=== PATIENT | male | born 1985 | race Caucasian/White ===

== ENCOUNTER 2023-09-27 06:14 | Day surgery (SDC) | payer OTHER ==
[2023-09-27 06:37] LABS: BASOPHILS # (AUTO) 0.1 10^3/uL (0.0-0.1); BASOPHILS % (AUTO) 0.3 %; EOSINOPHILS # (AUTO) 0.2 10^3/uL (0.0-0.7); EOSINOPHILS % (AUTO) 1.2 %; HCT - HEMATOCRIT 49.8 % (42.0-52.0); HGB - HEMOGLOBIN 16.4 g/dL (14.0-18.0); LYMPHOCYTES # (AUTO) 1.9 10^3/uL (1.5-3.5); LYMPHOCYTES % (AUTO) 9.6 %; MEAN CORPUSCULAR HEMOGLOBIN 28.4 pg (27.0-31.0); MEAN CORPUSCULAR HGB CONC 32.9 g/dL (32.0-36.0); MEAN CORPUSCULAR VOLUME 86.3 fL (80.0-94.0); MEAN PLATELET VOLUME 9.4 fL (7.4-11.4); MONOCYTES # (AUTO) 1.9 10^3/uL (0.0-1.0); MONOCYTES % (AUTO) 9.4 %; NEUTROPHILS # (AUTO) 15.8 10^3/uL (1.5-6.6); NEUTROPHILS % (AUTO) 79.1 %; PLT - PLATELET COUNT 288 10^3/uL (130-450); RED BLOOD COUNT 5.77 10^6/uL (4.70-6.10); WHITE BLOOD COUNT 19.9 x10^3/uL (4.8-10.8)
[2023-09-27 06:43] LABS: BILIRUBIN,URINE NEGATIVE (NEGATIVE); CLARITY,URINE CLEAR (CLEAR); GLUCOSE, URINE (UA) 250 mg/dL (NEGATIVE); KETONES,URINE (UA) TRACE mg/dL (NEGATIVE); LEUKOCYTE ESTERASE, URINE NEGATIVE (NEGATIVE); NITRITE,URINE NEGATIVE (NEGATIVE); OCCULT BLOOD,URINE SMALL (NEGATIVE); PROTEIN,URINE TRACE mg/dL (NEGATIVE); UROBILINOGEN,URINE 0.2 (NORMAL) E.U./dL (NORMAL)
[2023-09-27] MEDS: SODIUM CHLORIDE 0.9% 1,000 ML IV STA (06:45)
[2023-09-27] MEDS: KETOROLAC 30 MG/ML VIAL IVP STA (06:45)
[2023-09-27 06:55] LABS: ALBUMIN 4.7 g/dL (3.2-5.5); ALBUMIN/GLOBULIN RATIO 1.8 (1.0-2.2); BILIRUBIN,TOTAL 1.1 mg/dL (0.2-1.0); CALCIUM 10.3 mg/dL (8.5-10.3); CREATININE 1.2 mg/dL (0.6-1.3); POTASSIUM 3.5 mmol/L (3.5-4.5); TOTAL PROTEIN 7.3 g/dL (6.4-8.9)
--- NOTE | 2023-09-27 06:55 | ED Physician Documentation ---
PD HPI ABD PAIN - Stated complaint Stated Complaint: ,NAUSEA,ABD PX - Chief complaint Chief Complaint: Abd Pain - History obtained from History obtained from: Patient, Family - History of Present Illness Timing - onset: Enter time (0800), Yesterday Timing - duration: Days (1) Timing - details: Gradual onset, Still present Quality: Sharp, Pain Location: Epigastric Radiation: Improved by: Laying still Worsened by: Moving, Position, Palpation Associated symptoms: Nausea, Vomiting Similar symptoms before: Diagnosis (kidney stone) Recently seen: Not recently seen - Additional information Additional information: Previously well 38-year-old Shakeel Simmons developed sudden onset of abdominal pain yesterday in the center of his abdomen. He was clutching his abdomen most of the day. His pain is now moved to his suprapubic area and right lower quadrant. The patient was able to eat last night he attempted to eat something today and vomited. Review of Systems Constitutional: denies: Fever Nose: denies: Congestion Throat: denies: Sore throat Cardiac: denies: Chest pain / pressure Respiratory: denies: Dyspnea, Cough GI: reports: Abdominal Pain, Nausea, Vomiting (once last night) : reports: Frequency. denies: Dysuria Skin: denies: Rash Musculoskeletal: denies: Neck pain, Back pain, Extremity pain Neurologic: denies: Generalized weakness, Focal weakness, Numbness PD PAST MEDICAL HISTORY - Past Medical History Past Medical History: Yes : Kidney stones - Past Surgical History Past Surgical History: Yes HEENT: Other - Present Medications Home Medications: Ambulatory Orders Medication Instructions Recorded Confirmed Diclofenac Sodium 1% Gel [Voltaren 1 applic TOP BID 09/27/23 09/27/23 Gel] - Allergies Allergies/Adverse Reactions: Allergies Allergy/AdvReac Type Severity Reaction Status Date / Time No Known Drug Allergies Allergy Verified 09/27/23 06:27 - Social History Does the pt smoke?: No Smoking Status: Never smoker Does the pt drink ETOH?: No Does the pt have substance abuse?: No - Immunizations Immunizations are current?: Yes - POLST Patient has POLST: No PD ED PE NORMAL - Vitals Vital signs reviewed: Yes (tachy and hypertensive ) - General General: Alert and oriented X 3, Well developed/nourished, Other (Patient appears anxious and and in pain.) - HEENT HEENT: Atraumatic, PERRL, EOMI - Neck Neck: Supple, no meningeal sign, No bony TTP - Cardiac Cardiac: No murmur, Other (Tachycardia to 110) - Respiratory Respiratory: No respiratory distress, Clear bilaterally - Abdomen Abdomen: Soft, Non distended, No organomegaly, Other (Suprapubic tenderness and right lower quadrant tenderness. There is tenderness referred to the suprapubic area from palpation of the right lower quadrant and not from the left.) - Back Back: No CVA TTP, No spinal TTP - Derm Derm: Normal color, Warm and dry, No rash - Extremities Extremities: No deformity, No edema - Neuro Neuro: Alert and oriented X 3, behavior analyst 2-12 intact, No motor deficit, No sensory deficit, Normal speech Eye Opening: Spontaneous Motor: Obeys Commands Verbal: Oriented GCS Score: 15 - Psych Psych: Normal mood, Normal affect Results - Vitals Vitals: Vital Signs - 24 hr 09/27/23 06:21 Temperature 37.2 C Heart Rate 106 H Respiratory 20 Rate Blood Pressure 131/89 H O2 Saturation 97 Oxygen O2 Source Room air - Labs Labs: Laboratory Tests 09/27/23 09/27/23 09/27/23 06:30 06:30 06:30 WBC 19.9 H RBC 5.77 Hgb 16.4 Hct 49.8 MCV 86.3 MCH 28.4 MCHC 32.9 RDW 13.0 Plt Count 288 MPV 9.4 Neut # (Auto) 15.8 H Lymph # (Auto) 1.9 [place] # (Auto) 1.9 H Eos # (Auto) 0.2 Baso # (Auto) 0.1 Absolute Nucleated RBC 0.00 Band Neuts % (Manual) Not Reportable Abnorm Lymph % (Manual) Not Reportable Nucleated RBC % 0.0 Neutrophils # (Manual) Not Reportable Lymphocytes # (Manual) Not Reportable Monocytes # (Manual) Not Reportable Eosinophils # (Manual) Not Reportable Basophils # (Manual) Not Reportable Differential Comment MANUAL=AUTO DIFF Platelet Estimate NORMAL (130-450,000) Platelet Morphology NORMAL APPEARANCE Sodium 140 Potassium 3.5 Chloride 102 Carbon Dioxide 31 Anion Gap 7.0 BUN 12 Creatinine 1.2 Estimated GFR (MDRD) 67 L Glucose 115 H Calcium 10.3 Total Bilirubin 1.1 H AST 12 ALT 22 Alkaline Phosphatase 74 Total Protein 7.3 Albumin 4.7 Globulin 2.6 Albumin/Globulin Ratio 1.8 Lipase 20 Urine Color YELLOW Urine Clarity CLEAR Urine pH 6.0 Ur Specific [place] >=1.030 H Urine Protein TRACE Urine Glucose (UA) 250 H Urine Ketones TRACE Urine Occult Blood SMALL H Urine Nitrite NEGATIVE Urine Bilirubin NEGATIVE Urine Urobilinogen 0.2 (NORMAL) Ur Leukocyte Esterase NEGATIVE Ur Microscopic Review INDICATED Urine Culture Comments Not Reportable - Rads (name of study) CT abdomen pelvis without Relevant Findings:: Prelim report reviewed (Impression: 1. Acute appendicitis. No free air or abscess demonstrated. Bilateral nephrolithiasis. No evidence of obstructive uropathy.), EMP independent interpretation of test Procedures - Bedside sono Bedside sono by EMP: With use of POCUS the kidneys are imaged without evidence of hydronephrosis. They are sonographically nontender. Right lower quadrant is imaged with a tubular structure present and sonographic tenderness that extends to the bladder which is partially filled. - IVC sono (time) 0630 Bedside IVC sono: IVC measures (cm) (0.73), Dehydration (est 2+ liter deficit) PD Medical Decision Making - ED course Complexity details: reviewed results, re-evaluated patient, considered differential, d/w patient, d/w family Reviewed Lab Results: We reviewed a complete blood count showing a white blood cell count elevated at 19.9 normal hemoglobin hematocrit and platelets chemistries were with normal electrolytes normal kidney and liver function urinalysis shows concentrated urine with some trace glucose and trace occult blood. I interpreted these laboratory studies to indicate likely infectious process associated with this presentation and this is confirmed with the presence of appendicitis on the CT scan of the abdomen and pelvis. ED course: 38-year-old Shakeel Simmons came to the emergency department with abdominal pain that radiated down to his bladder over a period of the day and on examination he has suprapubic pain more to the right than the left. CT scan of the abdomen pelvis shows a dilated elongated appendix consistent with acute appendicitis without rupture or free air surgeon was contacted and the case and will come to the emergency department for evaluation. Dr. Romero placed orders for Unasyn and contacted the surgeon. The patient had improvement in his pain with use of 30 mg of Toradol. I did interrogate the IVC with POCUS found a 0.73 cm vessel consistent with a 2 to 3 L deficit. He was administered a liter of saline here in the emergency department. Departure - Departure Disposition: ED Transfer to [facility] Clinical Impression: Appendicitis Qualifiers: Appendicitis type: acute appendicitis Acute appendicitis type: with localized peritonitis Appendicitis gangrene presence: without gangrene Appendicitis perforation presence: without perforation Appendicitis abscess presence: without abscess Qualified Code(s): K35.30 - Acute appendicitis with localized peritonitis, without perforation or gangrene Forms: PCP List
[2023-09-27 07:05] LABS: DIFFERENTIAL COMMENT MANUAL=AUTO DIFF; PLATELET ESTIMATE, MANUAL NORMAL (130-450,000) (NORMAL); PLATELET MORPHOLOGY NORMAL APPEARANCE (NORMAL)
[2023-09-27] MEDS: PIPERACILLIN/TAZOBACTAM 3.375 GM in SODIUM CHLORIDE 0.9% MINIBAG 100 ML IV STA (07:50)
[2023-09-27] MEDS: LACTATED RINGERS 1,000 ML IV STA (07:51)
[2023-09-27 08:01] LABS: BACTERIA,URINE Few /HPF (None Seen); RBC,URINE 0-5 /HPF (0-5); SQUAMOUS EPITHELIAL CELL,UR FEW Squamous (<= Few); WBC,URINE 0-3 /HPF (0-3)
--- NOTE | 2023-09-27 08:48 | CT Report ---
PROCEDURE: Abdomen/Pelvis WO INDICATIONS: suprapubic and RLQ pain TECHNIQUE: A CT scan of the abdomen and pelvis was performed without the use of intravenous contrast. Images we re recorded and evaluated at appropriate window settings. Reformats: coronal and sagittal. For radiat ion dose reduction, the following was used: automated exposure control, adjustment of mA and/or kV ac cording to patient size. COMPARISON: None. FINDINGS: Image quality: Diagnostic. Lower chest: Unremarkable. Liver: No contour-deforming mass. Gallbladder: No radiopaque stones or wall thickening. Biliary tree: No intrahepatic or extrahepatic dilation, accounting for age. Spleen: No splenomegaly. Pancreas: No pancreatic ductal dilation. Adrenals: No adrenal nodule. Kidneys and ureters: No hydronephrosis. Bilateral nonobstructing renal calculi are seen measures up t o 2 mm in size in midpole of right kidney and 3 mm in size in lower pole of left kidney. No contour-d eforming mass. Stomach, bowel and peritoneum: There is no bowel obstruction. Enlarged appendix is seen with appendic eal wall thickening and periappendiceal fat stranding. 6 mm appendicolith is also noted series 2 imag e 131. There is no abscess collection. No other area of abnormal bowel wall thickening. No free fluid of free air. Lymph nodes: No central or retroperitoneal adenopathy. Vessels: No infrarenal aortic aneurysm. Reproductive organs: Unremarkable. Bladder: Bladder wall thickness is normal, accounting for underdistention. No calcified bladder stone s. Pelvic lymph nodes: No adenopathy by size criteria. Bones: No aggressive osseous abnormality. Other: No significant ventral or inguinal hernia. IMPRESSION: 1. Acute appendicitis containing 6 mm appendicolith. No perforation. No abscess collection. 2. No bowel obstruction. No other area of abnormal bowel wall thickening. No free fluid of free air. 3. No obstructing renal stones or hydronephrosis. Bilateral nonobstructing renal calculi. No discrepancies from preliminary reading. Reviewed by: Kanu Carty MD on 09/27/2023 8:47 AM PDT Approved by: Kanu Carty MD on 09/27/2023 8:47 AM PDT Station ID: [id number]
[2023-09-27] MEDS ORDERED: LIDOCAINE 1%-EPI 1:100000 20 ML MDV ONE ×2 (09:24→09:25)
[2023-09-27] MEDS ORDERED: BUPIVACAINE 0.25% PF 30 ML VIAL ONE (09:25)
[2023-09-27] MEDS ORDERED: SCOPOLAMINE PATCH TOP ONE (09:30)
--- NOTE | 2023-09-27 09:40 | HISTORY & PHYSICAL EXAMINATION ---
HPI - Admitted From Admitted from: ED - History Obtained From History obtained from: Patient Exam limitations: No limitations - History of Present Illness HPI Comment/Other: 38yoM with 24hrs of migratory RLQ pain. Initially felt to be gas pain, however progressed, was associated with nausea, no emesis. X1 diarrhea this AM. He last attempted to eat cereal 4 hours ago, however had no appetite. Denies prior similar episodes, denies fever or chills. Denies dysuria. PMH/PSH - Past Medical History Cardiovascular: positive: None Respiratory: positive: None Neuro: positive: None Endocrine/Autoimmune: positive: None GI: positive: None : positive: Kidney stones Psych: positive: None Musculoskeletal: positive: None Derm: positive: None MRSA Hx?: No - Past Surgical History Ortho: positive: Other (RIGHT shoulder surgery ) HEENT: positive: Other Other past surgical history: Percutaneous nephrolithotripsy Social & Family Hx - Living Situation Living Arrangement: At home Living Situation: With spouse/s.o. - Social History Does the pt smoke?: No Smoking Status: Never smoker Does the pt drink ETOH?: No Does the pt have substance abuse?: No - POLST Patient has POLST: No Meds/Allgy - Home Medications Home Medications: Ambulatory Orders Medication Instructions Recorded Confirmed Diclofenac Sodium 1% Gel [Voltaren 1 applic TOP BID 09/27/23 09/27/23 Gel] - Allergies Allergies/Adverse Reactions: Allergies Allergy/AdvReac Type Severity Reaction Status Date / Time No Known Drug Allergies Allergy Verified 09/27/23 06:27 Review of Systems - Gastrointestinal Gastrointestinal: reports: Abdominal pain, Diarrhea, Nausea. denies: Bloody stools, Vomiting - Genitourinary Genitourinary: denies: Dysuria Exam - Vital Signs Reviewed Vital Signs: Yes Vital Signs: Vital Signs x48h Temp Pulse Resp BP Pulse Ox 09/27/23 08:21 36.9 C 88 18 119/79 100 09/27/23 06:21 37.2 C 106 H 20 131/89 H 97 - Physical Exam General Appearance: positive: No acute distress, Alert Eyes Bilateral: positive: Normal inspection, PERRL ENT: positive: ENT inspection nml, Pharynx nml, No signs of dehydration Neck: positive: Nml inspection, Thyroid nml, No JVD, Trachea midline Respiratory: positive: Chest non-tender, No respiratory distress, Breath sounds nml Cardiovascular: positive: Regular rate & rhythm, No murmur, No gallop Peripheral Pulses: positive: 2+ Abdomen: positive: No distention, Tenderness (RLQ, negative rosvings). negative: Guarding, Rebound Back: positive: Nml inspection Skin: positive: Color nml, No rash, Warm, Dry Extremities: positive: Non-tender, Full ROM, Nml appearance Neurologic/Psychiatric: positive: Oriented x3, Mood/affect nml Results - Lab Results Lab results reviewed: Yes Fish Bones: 09/27/23 06:30 09/27/23 06:30 Other Lab Results: Lab Results x24hrs 09/27/23 09/27/23 09/27/23 Range/Units 06:30 06:30 06:30 WBC 19.9 H (4.8-10.8) x10^3/uL RBC 5.77 (4.70-6.10) 10^6/uL Hgb 16.4 (14.0-18.0) g/dL Hct 49.8 (42.0-52.0) % MCV 86.3 (80.0-94.0) fL MCH 28.4 (27.0-31.0) pg MCHC 32.9 (32.0-36.0) g/dL RDW 13.0 (12.0-15.0) % Plt Count 288 (130-450) 10^3/uL MPV 9.4 (7.4-11.4) fL Neut # (Auto) 15.8 H (1.5-6.6) 10^3/uL Lymph # (Auto) 1.9 (1.5-3.5) 10^3/uL [place] # (Auto) 1.9 H (0.0-1.0) 10^3/uL Eos # (Auto) 0.2 (0.0-0.7) 10^3/uL Baso # (Auto) 0.1 (0.0-0.1) 10^3/uL Absolute Nucleated RBC 0.00 x10^3/uL Band Neuts % (Manual) Not Reportable Abnorm Lymph % (Manual) Not Reportable Nucleated RBC % 0.0 /100WBC Neutrophils # (Manual) Not Reportable Lymphocytes # (Manual) Not Reportable Monocytes # (Manual) Not Reportable Eosinophils # (Manual) Not Reportable Basophils # (Manual) Not Reportable Differential Comment MANUAL=AUTO DIFF Platelet Estimate NORMAL (130-450,000) (NORMAL) Platelet Morphology NORMAL APPEARANCE (NORMAL) Sodium 140 (135-145) mmol/L Potassium 3.5 (3.5-4.5) mmol/L Chloride 102 (101-111) mmol/L Carbon Dioxide 31 (21-32) mmol/L Anion Gap 7.0 (6-13) BUN 12 (6-20) mg/dL Creatinine 1.2 (0.6-1.3) mg/dL Estimated GFR (MDRD) 67 L (>89) Glucose 115 H (74-104) mg/dL Calcium 10.3 (8.5-10.3) mg/dL Total Bilirubin 1.1 H (0.2-1.0) mg/dL AST 12 (10-42) IU/L ALT 22 (10-60) IU/L Alkaline Phosphatase 74 (42-121) IU/L Total Protein 7.3 (6.4-8.9) g/dL Albumin 4.7 (3.2-5.5) g/dL Globulin 2.6 (2.1-4.2) g/dL Albumin/Globulin Ratio 1.8 (1.0-2.2) Lipase 20 (11-82) U/L Urine Color YELLOW Urine Clarity CLEAR (CLEAR) Urine pH 6.0 (5.0-7.5) PH Ur Specific [place] >=1.030 H (1.002-1.030) Urine Protein TRACE (NEGATIVE) mg/dL Urine Glucose (UA) 250 H (NEGATIVE) mg/dL Urine Ketones TRACE (NEGATIVE) mg/dL Urine Occult Blood SMALL H (NEGATIVE) Urine Nitrite NEGATIVE (NEGATIVE) Urine Bilirubin NEGATIVE (NEGATIVE) Urine Urobilinogen 0.2 (NORMAL) (NORMAL) E.U./dL Ur Leukocyte Esterase NEGATIVE (NEGATIVE) Urine RBC 0-5 (0-5) /HPF Urine WBC 0-3 (0-3) /HPF Ur Squamous Epith Cells FEW Squamous (<= Few) Urine Bacteria Few (None Seen) /HPF Ur Microscopic Review INDICATED Urine Culture Comments NOT INDICATED - Diagnostic Imaging Results Diagnostic Imaging Results: positive: Read contemporaneously Diagnostic Imaging Results Comments: CT abd/pel without contrast c/w dilated, inflamed appendix with appendicolith, acute appendicitis without evidence of perforation. Sepsis Event Note (H) - Evaluation Current Stage of Sepsis: Sepsis Possible source of Sepsis: positive: GI tract/intra-abdominal Confirmed Source and Organism (if known) of Sepsis: appendix - Sepsis Criteria Sepsis Criteria: Recorded Heart Rate greater than 90 bpm, WBC count greater than 12,000 or less than 4000 Impression/Plan - Problem List Problem List: 38yoM, relatively healthy with history of nephrolithiasis, presents to the ED With H&P c/w acute appendicitis. 24hrs of pain, RLQ ttp, HR to 106 and WBC to 19, CT demonstrates dilated inflamed appendix with appendicolith. Discussed with patient and his the diagnosis and treatment options to include antibiotics alone vs surgery. Risk of failure and recurrence with antibiotics alone discussed. Risks of surgery to include pain, bleeding, infection/abscess, open surgery, bowel resection, need for further procedures discussed. All questions answered, and the patient agrees to proceed with surgery. - 1L crystalloid and Zosyn given in ED - to OR for laparoscopic appendectomy - anticipate DC home within 24hrs Sarah Willingham DO, FACS General Surgeon
[2023-09-27] MEDS ORDERED: PROPOFOL 200 MG/20 ML VIAL IVP ONE ×3 (09:42→10:45)
[2023-09-27] MEDS ORDERED: DEXAMETHASONE 4 MG/ML VIAL ONE (09:42)
[2023-09-27] MEDS ORDERED: ONDANSETRON 4 MG/2 ML VIAL ONE (09:42)
[2023-09-27] MEDS ORDERED: ROCURONIUM 50 MG/5 ML VIAL ONE (09:42)
[2023-09-27] MEDS ORDERED: MIDAZOLAM 2 MG/2 ML VIAL ONE (09:46)
[2023-09-27] MEDS ORDERED: fentaNYL 100 MCG/2 ML VIAL ONE (09:46)
[2023-09-27] MEDS ORDERED: PROPOFOL 500 MG/50 ML 500 MG/50 ML VIAL ONE ×2 (09:52→10:29)
[2023-09-27] MEDS ORDERED: KETAMINE 200 MG/20 ML VIAL ONE (09:55)
[2023-09-27] MEDS ORDERED: ATROPINE ABBOJECT 1 MG/10 ML SYRINGE IVP PRN (09:57)
[2023-09-27] MEDS ORDERED: ONDANSETRON 4 MG/2 ML VIAL IVP PRN ×2 (09:57→11:22)
[2023-09-27] MEDS ORDERED: fentaNYL 100 MCG/2 ML VIAL IVP PRN (09:57)
[2023-09-27] MEDS ORDERED: METOCLOPRAMIDE 10 MG/2 ML VIAL IVP PRN (09:57)
[2023-09-27] MEDS ORDERED: MORPHINE 2 MG/ML CARPUJECT IVP PRN (09:57)
[2023-09-27] MEDS ORDERED: HYDROmorphone 0.5 MG/0.5 ML SYRINGE IVP PRN (09:57)
[2023-09-27] MEDS ORDERED: ePHEDrine 50 MG/ML VIAL IVP PRN (09:57)
[2023-09-27] MEDS ORDERED: NALOXONE 0.4 MG/ML VIAL IVP PRN (09:57)
--- NOTE | 2023-09-27 09:57 | ANESTHESIA ---
Pre-Anesthesia VS, & Labs - Diagnosis appendicitis - Procedure laparascopic appendectomy Vital Signs: Temp Pulse Resp BP Pulse Ox O2 Flow Rate 36.9 C 88 18 119/79 100 09/27/23 08:21 09/27/23 08:21 09/27/23 08:21 09/27/23 08:21 09/27/23 08:21 Height: 6 ft 3 in Weight (kg): 92.079 kg Body Mass Index: 25.3 BMI Classification: Overweight - NPO Last Fluid Intake: 514 Last Food Intake: 514 - Lab Results Current Lab Results: Laboratory Tests 09/27/23 06:30: Sodium 140, Potassium 3.5, Chloride 102, Carbon Dioxide 31, Anion Gap 7.0, BUN 12, Creatinine 1.2, Estimated GFR (MDRD) 67 L, Glucose 115 H, Calcium 10.3, Total Bilirubin 1.1 H, AST 12, ALT 22, Alkaline Phosphatase 74, Total Protein 7.3, Albumin 4.7, Globulin 2.6, Albumin/Globulin Ratio 1.8, Lipase 20 09/27/23 06:30: WBC 19.9 H, RBC 5.77, Hgb 16.4, Hct 49.8, MCV 86.3, MCH 28.4, MCHC 32.9, RDW 13.0, Plt Count 288, MPV 9.4, Neut # (Auto) 15.8 H, Lymph # (Auto) 1.9, [place] # (Auto) 1.9 H, Eos # (Auto) 0.2, Baso # (Auto) 0.1, Absolute Nucleated RBC 0.00, Band Neuts % (Manual) Not Reportable, Abnorm Lymph % (Manual) Not Reportable, Nucleated RBC % 0.0, Neutrophils # (Manual) Not R eportable, Lymphocytes # (Manual) Not Reportable, Monocytes # (Manual) Not Reportable, Eosinophils # (Manual) Not Reportable, Basophils # (Manual) Not Reportable, Differential Comment MANUAL=AUTO DIFF, Platelet Estimate NORMAL (130-450,000), Platelet Morphology NORMAL APPEARANCE Lab results reviewed: Yes Fish Bones: 09/27/23 06:30 09/27/23 06:30 Home Medications and Allergies Home Medications: Ambulatory Orders Diclofenac Sodium 1% Gel [Voltaren Gel] 1 applic TOP BID 09/27/23 Diclofenac Sodium 1% Gel [Voltaren Gel] 1 applic TOP BID 09/27/23 Allergies/Adverse Reactions: Allergies Allergy/AdvReac Type Severity Reaction Status Date / Time No Known Drug Allergies Allergy Verified 09/27/23 06:27 Anes History & Medical History - Anesthetic History Anesthesia Complications: reports: Post-Operative Nausea/Vomiting Family history of Anesthesia Complications: Denies - Medical History Cardiovascular: reports: None Pulmonary: reports: None Gastrointestinal: reports: None Urinary: reports: Kidney stones Neuro: reports: None Musculoskeletal: reports: None Endocrine/Autoimmune: reports: None Skin: reports: None Smoking Status: Never smoker Psychosocial: reports: No issues indicated - Surgical History Eyes Ears Nose Throat (EENT): reports: Other Orthopedic: reports: Other (RIGHT shoulder surgery ) Other Past Surgical History: Percutaneous nephrolithotripsy Exam Dental: WNL Mouth Openin Fingerbreadth Neck Mobility: Normal Mallampati classification: II Thyromental Distance: 4-6 cm Respiratory: Lungs clear Cardiovascular: Regular rate Plan Anesthesia Type: General (RSI), Total IV (TIVA, plus scop patch applied behind right ear) Consent for Procedure(s) Verified and Reviewed: Yes Code Status: Attempt Resuscitation ASA classification: 2-Mild systemic disease Is this case an emergency?: Yes
[2023-09-27] MEDS ORDERED: LACTATED RINGERS 1,000 ML IV SCH (10:00)
[2023-09-27] MEDS ORDERED: HYDROmorphone 1 MG/ML CARPUJECT IVP STA (10:02)
[2023-09-27] MEDS ORDERED: LIDOCAINE-PF 2% 10 ML AMP SUBQ ONE (10:10)
[2023-09-27] MEDS ORDERED: ePHEDrine 50 MG/ML VIAL IVP ONE (10:24)
[2023-09-27] MEDS ORDERED: DEXMEDETOMIDINE 200 MCG/2 ML VIAL ONE (10:26)
[2023-09-27] MEDS ORDERED: PHENYLEPHRINE HCL 0.5 MG/5 ML AMPULE ONE (10:31)
[2023-09-27] MEDS ORDERED: ACETAMINOPHEN 1,000 MG/100 ML 1,000 MG/100 ML BAG IV ONE (10:40)
[2023-09-27] MEDS ORDERED: SUGAMMADEX 200 MG/2 ML VIAL IVP ONE ×2 (10:47→11:07)
[2023-09-27] MEDS: LIDOCAINE 1%-EPI 1:100000 20 ML MDV SUBQ ONE ×2 (10:54)
[2023-09-27] MEDS ORDERED: HYDROmorphone 1 MG/ML CARPUJECT ONE (10:54)
[2023-09-27] MEDS: BUPIVACAINE 0.25% PF 30 ML VIAL SUBQ ONE ×2 (10:54)
--- NOTE | 2023-09-27 11:19 | OPERATIVE REPORT ---
Operative Report - General Planned Procedure: laparoscopic appendectomy Pre-Op Diagnosis: acute appendicitis Procedure Performed: laparoscopic appendectomy Post Op Diagnosis: acute suppurative appendicitis - Procedure Note Primary Surgeon: Sarah Willingham DO Anesthesia Provider: Mayi Sandhu CRNA Anesthesia Technique: General ET tube Pathology: appendix IV Fluids (mL): 800 Estimated Blood Loss (mL): 10 Urine Output (mL): 60 Indications: 38yoM with 24hrs abdominal pain, WBC 19, CT demonstrating acute appendicitis with fecalith Findings: dilated, inflamed, suppurative appendicitis without gross perforation. Small amount of purulent fluid in RLQ. Complications: none - Other Other Information/Narrative: The patient was brought to the operating room with universal protocol observed throughout. He was placed supine on the operating room table with the left arm tucked. A Jackson was placed. General anesthesia with endotracheal tube was induced by the anesthesia service. A timeout was performed with all members of the team being in agreement. Local anesthetic of 1% lidocaine with epinephrine mixed with Marcaine plain was injected into the infraumbilical skin. A transverse skin incision was made sharply. Blunt dissection down to the level of the fascia was performed. The umbilical stalk was elevated and the fascia was incised sharply in a vertical orientation and the peritoneal cavity was entered bluntly with a Rosa clamp. A 12 mm balloon trocar was placed. The abdomen was insufflated with CO2 gas to a pressure of 15 mmHg which the patient tolerated well. The laparoscope was inserted and visual inspection revealed no evidence of injury upon entry. Two additional 5mm trocars were placed under direct visualization: one in the left lower quadrant, one in the suprapubic position. Graspers were introduced into the abdomen. The appendix was indurated with suppurative inflammation with a normal base and no perforation. The appendix was elevated and a window through the mesentery at the base of the appendix was made bluntly, through which the appendiceal base was divided with a 30 mm blue load s taple line. The mesoappendix was divided with a 30mm while load staple line. The appendix was placed into an Endo Catch bag and extracted through the umbilical port. The staple line was inspected and noted to be intact and hemostatic. A small amount of purulent fluid in the right lower quadrant was suctioned out. The trocars were removed under direct visualization. The umbilical fascia was closed with an 0 Vicryl [id number] suture. The umbilical wound was irrigated with clean normal saline. Hemostasis in the wound was achieved with Bovie electrocautery and all skin incisions were closed with subcuticular 4-0 Monocryl suture. A dressing of Steri-Strips gauze and Tegaderm was applied. The jackson was removed. The patient was extubated and awoken from general anesthesia. There were no complications. All sponge needle counts were correct. The patient was transferred to the PACU in stable condition. Sarah Willingham DO, FACS General Surgeon
[2023-09-27] MEDS: LACTATED RINGERS 200 ML IV ONE ×2 (11:20→11:39)
--- NOTE | 2023-09-27 11:27 | DISCHARGE SUMMARY ---
"Discharge Summary Admit Date: 09/27/23 Discharge Date: 09/27/23 Discharging Provider: Sarah TINOCO DO, FACS Code Status: Attempt Resuscitation Condition at Discharge: Good Discharge Disposition: 01 Home, Self Care - DIAGNOSES Admission Diagnoses: acute suppurative appendicitis Discharge Diagnoses with Status of Each Condition: resolved - CONSULTS | PROCEDURES Procedures: laparoscopic appendectomy - HOSPITAL COURSE Hospital Course: The patient was admitted for acute appendicitis, given zosyn and taken to the OR for laparoscopic appendectomy. The procedure was uncomplicated, and revealed acute suppurative appendicitis. The patient was recovered in the PACU. He was am bulating and voiding at baseline, pain was controlled with PO medication, and he was hemodynamically normal. He was discharged to home on the day of surgery. - ALLERGIES Allergies/Adverse Reactions: Allergies Allergy/AdvReac Type Severity Reaction Status Date / Time No Known Drug Allergies Allergy Verified 09/27/23 06:27 - MEDICATIONS Home Medications: Ambulatory Orders Medication Instructions Recorded Confirmed Diclofenac Sodium 1% Gel [Voltaren 1 applic TOP BID 09/27/23 09/27/23 Gel] - PHYSICAL EXAM AT DISCHARGE General Appearance: positive: No acute distress, Alert Eyes Bilateral: positive: Normal inspection ENT: positive: ENT inspection nml Neck: positive: Nml inspection Respiratory: positive: Chest non-tender, No respiratory distress, Breath sounds nml Cardiovascular: positive: Regular rate & rhythm Peripheral Pulses: positive: 2+ Abdomen: positive: Tenderness (periincisional ttp) Back: positive: Nml inspection Skin: positive: Color nml, No rash, Warm, Dry Extremities: positive: Non-tender, Full ROM, Nml appearance Neurologic/Psychiatric: positive: Oriented x3 - LABS Result Diagrams: 09/27/23 06:30 09/27/23 06:30 - SEPSIS Current Stage of Sepsis: Sepsis Possible source of Sepsis: GI tract/intra-abdominal Sepsis Criteria: Recorded Heart Rate greater than 90 bpm, WBC count greater than 12,000 or less than 4000 - FOLLOW UP Follow Up: 2 weeks in general surgery clinic - TIME SPENT Time Spent in Discharge (Minutes): 30"
[2023-09-27] MEDS: LACTATED RINGERS 1,000 ML IV ONE ×2 (11:39→12:00)
--- NOTE | 2023-09-27 12:29 | ANESTHESIA POST OP EVALUATION ---
Anesthesia Post Eval - Post Anesthesia Eval Vitals: Last Vital Signs Temp 36.7 C 09/27/23 12:01 Pulse 94 09/27/23 12:26 Resp 16 09/27/23 12:26 BP 106/72 09/27/23 12:26 Pulse Ox 95 09/27/23 12:26 O2 Flow Rate CV Function Including HR & BP: Stable Pain Control: Satisfactory Nausea & Vomiting: Negative Mental Status: Baseline Respiratory Status: Airway Patent Hydration Status: Satisfactory Anesthesia Complications: None
[2023-09-27] MEDS ORDERED: oxyCODONE 5 MG TABLET ONE (13:16)
[2023-09-27] MEDS: oxyCODONE 5 MG TABLET PO PRN (13:21)
[2023-09-27 14:37] VITALS: BP 124/72; O2SAT 95
== END 2023-09-27 09:21 | disposition home or self-care (01) ==
LOC: ED 06:14 → SDS 09:20
PROVIDERS: ATTEND Surgery
PROC: 0DTJ4ZZ Resection of Appendix, Percutaneous Endoscopic Approach (ICD-10-PCS; principal; 2023-09-27 10:00)
DX: A41.9 Sepsis, unspecified organism (principal); K35.30 Acute appendicitis with localized peritonitis, without perforation or gangrene
CPT/HCPCS: 36415; 44970; 74176; 80053; 81001; 83690; 85025; 96361; 96365; 96375; 99285; A9270; J0131; J1170; J2372; J3490; J7120; 81003; 87086

== ENCOUNTER 2023-10-08 09:12 | Outpatient (CLI) | payer OTHER ==
--- NOTE | 2023-10-08 12:38 | MRI Report ---
PROCEDURE: Ankle RT WO INDICATIONS: R ANKLE INJURY TECHNIQUE: Noncontrast sagittal T1 spin echo and T2 fast spin echo with fat saturation, axial proton density fas t spin echo and T2 fast spin echo with fat saturation, coronal T1 spin echo and T2 fast spin echo wit h fat saturation through the ankle/hindfoot. COMPARISON: None. FINDINGS: Image quality: Excellent. Bones and joints: No bone marrow contusions or fractures. No hindfoot coalitions. No osteochondral injuries of the talar dome. Small amount of tibiotalar joint effusion, no loose bodies. Medial structures: The posterior tibialis tendon is thickened with small amount of fluid distending tendon sheath at the level of distal talus and talar navicular joint. The flexor digitorum longus, an d flexor hallucis longus tendons are intact. The posterior tibial neurovascular bundle appears belén l within the tarsal tunnel, without extrinsic mass effect. The deltoid ligament is intact. Mildly th ickened spring ligament near its distal insertion is seen. Lateral structures: The anterior talofibular, calcaneofibular, and posterior talofibular ligaments a ppear intact. More superiorly, the anterior and posterior tibiofibular ligaments appear normal, as i s the intermalleolar ligament. The tibiofibular syndesmosis is normal in width at 2 mm or less. The peroneus longus and brevis tendons are thickened at the level of lateral malleolus tip with fluid di stending tendon sheath extending to the level of the calcaneocuboid joint. The sinus tarsi demonstrat es normal fatty signal, without edema, fibrosis, or cyst formation. Visualized sinus tarsi component s (cervical ligament, interosseous talocalcaneal ligament, roots of the inferior extensor retinaculum ) appear normal. Anterior structures: The tibialis anterior, extensor hallucis longus, and extensor digitorum longus tendons appear intact. Posterior and plantar structures: Distal Achilles tendinosis at its posterior calcaneal insertion is seen. No Achilles tendon rupture. Medial and lateral bands of the plantar fascia are of normal thickn ess. No abductor digiti quinti muscle atrophy to suggest Giang neuropathy. IMPRESSION: 1. No marrow edema. No ankle fracture or dislocation. No osteochondral injuries of talar dome. Small joint effusion, no loose bodies. 2. Low to moderate grade tenosynovitis involving posterior tibialis tendon at the level of distal shonna us and talar navicular joint. 3. Sprain/low-grade intrasubstance partial thickness tear involving distal spring ligament near its d istal insertion. 4. Low-grade tenosynovitis involving peroneus tendons at the level of lateral malleolus tip extending to the level of calcaneocuboid joint. 5. Distal Achilles tendinosis at its posterior calcaneal insertion. No Achilles tendon rupture. Reviewed by: Kanu Modi MD on 10/08/2023 12:37 PM PDT Approved by: Kanu Modi MD on 10/08/2023 12:37 PM PDT Station ID: [id number]
== END 2023-10-08 09:13 | disposition home or self-care (01) ==
LOC: DI 09:12
PROVIDERS: ATTEND Student in an Organized Health Care Education/Training Program
DX: S99.911A Unspecified injury of right ankle, initial encounter (principal); M25.471 Effusion, right ankle; M65.9 Synovitis and tenosynovitis, unspecified; S93.491A Sprain of other ligament of right ankle, initial encounter; M67.873 Other specified disorders of tendon, right ankle and foot